=== PATIENT | male | born 1990 | race Caucasian/White ===

== ENCOUNTER 2019-11-30 22:57 | Emergency (ER) | payer OTHER, BC ==
[~2019-11-30] VITALS: Ht 170.2 cm; Wt 94.5 kg
[2019-12-01 00:13] LABS: BASO % 0.5 % (0.0-1.0); EOS # 0.2 10^3/uL (0.0-0.5); EOS % 2.3 % (0.0-3.0); HEMATOCRIT 44.2 % (42.0-52.0); HEMOGLOBIN 16.2 g/dl (13.5-17.5); LYMPH # 2.7 10^3/uL (1.5-5.0); LYMPH % 34.5 % (24.0-44.0); MEAN CORPUSCULAR HEMOGLOBIN 32.3 pg (27.0-33.0); MEAN CORPUSCULAR HGB CONC 36.7 g/dl (32.0-36.5); MEAN CORPUSCULAR VOLUME 88.2 fl (80.0-96.0); MONO # 0.5 10^3/uL (0.0-0.8); NEUTROPHILS # 4.3 10^3/uL (1.5-8.5); NEUTROPHILS % 55.3 % (36.0-66.0); PLATELET COUNT, AUTOMATED 334 10^3/uL (150-450); RED BLOOD COUNT 5.01 10^6/uL (4.30-6.10); WHITE BLOOD COUNT 7.7 10^3/uL (4.0-10.0)
[2019-12-01 00:26] LABS: POTASSIUM SERUM 2.9 MEQ/L (3.5-5.1)
[2019-12-01] MEDS ORDERED: POTASSIUM CHLORIDE 10 MEQ SR TABLET PO ONE (00:45)
--- NOTE | 2019-12-01 01:14 | REPVR ---
PROCEDURE INFORMATION: Exam: CT Abdomen And Pelvis Without Contrast Exam date and time: 12/01/2019 12:54 AM Age: 29 years old Clinical indication: Abdominal pain; Additional info: Suprapubic pain, hematuria, calculus? TECHNIQUE: Imaging protocol: Computed tomography of the abdomen and pelvis without contrast. Axial, coronal and sagittal reformatted images were created and reviewed. Radiation optimization: All CT scans at this facility use at least one of these dose optimization techniques: automated exposure control; mA and/or kV adjustment per patient size (includes targeted exams where dose is matched to clinical indication); or iterative reconstruction. COMPARISON: No relevant prior studies available. FINDINGS: Liver: Unremarkable. Gallbladder and bile ducts: No radiodense gallstones. No biliary ductal dilatation. Pancreas: Unremarkable. Spleen: Unremarkable. Adrenals: Unremarkable. Kidneys and ureters: Mild right-sided hydroureteronephrosis, secondary to a 4 mm mid to distal right ureteral calculus (axial image 109 and coronal image 49). Mild left-sided hydronephrosis, secondary to a 4 mm proximal left ureteral calculus (axial image 71 and coronal image 47). Nonobstructing left renal calculus. Stomach and bowel: Scattered colonic diverticula without evidence of diverticulitis. No obstruction. No bowel wall thickening. No pneumatosis. Appendix: Normal. Intraperitoneal space: No free fluid. No organized fluid collection. No free air. Vasculature: Unremarkable. No aneurysm. Lymph nodes: No pathologically enlarged lymph nodes. Bladder: Unremarkable. Reproductive: Unremarkable. Bones/joints: No acute osseous abnormality. Soft tissues: Unremarkable. IMPRESSION: 1. Bilateral obstructive uropathy, as described above. 2. Additional findings, as above. Electronically signed by: Javier Reese On 12/01/2019 01:13:33 AM
[2019-12-01 01:29] LABS: CHLAMYDIA DNA AMPLIFICATION NEGATIVE (NEGATIVE); GC DNA AMPLIFICATION NEGATIVE (NEGATIVE)
[2019-12-01] MEDS ORDERED: FLOM0.4C39 PO (01:43)
[2019-12-01] MEDS ORDERED: TAMSULOSIN 0.4 MG CAP PO ONE (01:45)
[2019-12-01 02:05] VITALS: BP 135/79
--- NOTE | 2019-12-01 06:30 | ECGEPIP ---
[facility] - ED Test Date: 2019-12-01 Pat Name: CAROLINA MOORE Department: Room: - Gender: Male Outreach Director: paulie : 1990 Requested By: FRANKIE Simpson PA-C Order Number: [id number] Reading MD: Diandra Tee Measurements Intervals [place] Rate: 88 P: 59 WI: 156 QRS: 44 QRSD: 82 T: 15 QT: 366 QTc: 443 Interpretive Statements SINUS RHYTHM NO PRIOR ECG FOR COMPARISON Electronically Signed on 12-01-2019 6:30:14 EDT by Diandra Tee
== END 2019-12-01 02:07 | disposition home or self-care (01) ==
LOC: M ED 22:57
DX: N13.2 Hydronephrosis with renal and ureteral calculous obstruction (principal); E87.6 Hypokalemia; R31.9 Hematuria, unspecified

== ENCOUNTER 2020-08-01 05:36 | Emergency (ER) | payer OTHER, BC ==
[~2020-08-01] VITALS: Ht 170.2 cm; Wt 96.6 kg
[~2020-08-01 05:36] MED LIST: FLOM0.4C39 PO
[2020-08-01] MEDS ORDERED: OTC POTASSIUM PO (05:52)
[2020-08-01] MEDS ORDERED: POTA10808 PO (05:52)
[2020-08-01] MEDS ORDERED: NS 1,000 ML IV ONE (07:00)
[2020-08-01] MEDS ORDERED: ONDANSETRON 4MG/2ML VIAL IV ONE (07:00)
[2020-08-01] MEDS ORDERED: KETOROLAC 30 MG/ML 1ML VIAL IV ONE (07:00)
[2020-08-01 07:55] LABS: BASO % 0.3 % (0.0-1.0); EOS # 0.1 10^3/uL (0.0-0.5); EOS % 0.9 % (0.0-3.0); HEMOGLOBIN 14.6 g/dl (13.5-17.5); LYMPH # 1.5 10^3/uL (1.5-5.0); LYMPH % 13.5 % (24.0-44.0); MEAN CORPUSCULAR HEMOGLOBIN 30.4 pg (27.0-33.0); MEAN CORPUSCULAR HGB CONC 34.8 g/dl (32.0-36.5); MEAN CORPUSCULAR VOLUME 87.5 fl (80.0-96.0); MONO # 0.7 10^3/uL (0.0-0.8); MONO % 6.2 % (0.0-5.0); NEUTROPHILS # 8.7 10^3/uL (1.5-8.5); NEUTROPHILS % 78.9 % (36.0-66.0); PLATELET COUNT, AUTOMATED 319 10^3/uL (150-450)
[2020-08-01 08:14] LABS: BLOOD UREA NITROGEN 12 MG/DL (7-18); CALCIUM LEVEL 8.6 MG/DL (8.5-10.1); CARBON DIOXIDE LEVEL 27 MEQ/L (21-32); CHLORIDE LEVEL 105 MEQ/L (98-107); CREATININE FOR GFR 1.13 MG/DL (0.70-1.30); GLOMERULAR FILTRATION RATE > 60.0 (>60); GLUCOSE, FASTING 123 MG/DL (70-100); POTASSIUM SERUM 3.6 MEQ/L (3.5-5.1); SODIUM LEVEL 140 MEQ/L (136-145)
--- NOTE | 2020-08-01 08:35 | REP ---
INDICATION: left renal colic COMPARISON: 12/01/2019 TECHNIQUE: Axial noncontrast images from the lung bases to the pubic symphysis with coronal and sagittal reformations. This CT examination was performed using the following dose reduction techniques: Automated exposure control, adjustment of mA and/or kv according to the patient's size, and use of iterative reconstruction technique. FINDINGS: Acute left-sided hydropneumothorax including edematous enlargement to the left kidney, perinephric stranding, and hydroureteronephrosis secondary to a 4 mm obstructing calculus at the ureterovesical junction (images 132-133). Few adjacent reactive retroperitoneal lymph nodes at the level of the left kidney are noted. 2 mm nonobstructing left renal calculus is also appreciated. Right kidney includes 1 mm nonobstructing renal calculus. Liver, spleen, pancreas, gallbladder, and bilateral adrenal glands are normal. The enteric system is without obstruction or acute inflammatory process. Normal terminal ileum and appendix are identified in the right lower quadrant. Pelvis demonstrates sigmoid diverticula without acute diverticulitis. Bladder is grossly unremarkable. Prostate gland is age-appropriate. No pelvic fluid or ascites. No free air. Abdominal aorta and vasculature are grossly normal for noncontrast evaluation. Skeletal structures are intact. IMPRESSION: 1. Acute left-sided obstructive uropathy with a 4 mm obstructing calculus at the ureterovesical junction. Solitary nonobstructing 1 mm right calculus and 2 mm left calculus noted. <Electronically signed by Jeuss Alberto Whitfield > 08/01/20 0839
[2020-08-01] MEDS ORDERED: IBUP-1022 PO (09:41)
[2020-08-01] MEDS ORDERED: ONDA4TAB6 PO (09:41)
[2020-08-01] MEDS ORDERED: NORC1TAB7 PO (09:41)
[2020-08-01 10:47] VITALS: BP 142/84
== END 2020-08-01 10:49 | disposition home or self-care (01) ==
LOC: M ED 05:36
DX: N13.2 Hydronephrosis with renal and ureteral calculous obstruction (principal)
CPT/HCPCS: 74176; 80048; 81001; 85025; 96361; 96374; 96375; 99284; J1885; J2405

== ENCOUNTER → 2021-03-15 | Outpatient (CLI) | payer OTHER ==
[~2021-03-15] MED LIST changes: +IBUP-1022 PO; +NORC1TAB7 PO; +ONDA4TAB6 PO; +OTC POTASSIUM PO; +POTA10808 PO
--- NOTE | 2021-03-15 08:43 | REP ---
INDICATION: ABN LFT'S. COMPARISON: Abdomen/pelvis CT without IV contrast dated 08/01/2020. Abdomen/pelvis CT without IV contrast dated 12/01/2019. TECHNIQUE: Multiple ultrasonographic images of the abdominal right upper quadrant. FINDINGS: The hepatic parenchyma is homogeneous but slightly hyperechoic. This is compatible with hepato steatosis. There is no cholelithiasis, gallbladder wall thickening or pericholecystic fluid. There is no intrahepatic or extrahepatic biliary duct dilatation. The common biliary duct measures 3.5 mm in diameter. The pancreas is obscured by bowel gas. The right kidney is normal size measuring 11.4 x 5.7 x 4.9 cm. There is no right renal hydronephrosis, calculus, mass or cyst. There is no intraperitoneal free fluid. IMPRESSION: No focal hepatic lesions. There is mild hepatic hyperechogenicity compatible with hepato steatosis. The study is limited because of bowel gas. <Electronically signed by Diego Cruz > 03/15/21 0839
== END ==
LOC: M RAD 06:30
PROVIDERS: ATTEND Nurse Practitioner Family
DX: R94.5 Abnormal results of liver function studies (principal)

== ENCOUNTER → 2021-05-12 | Outpatient (REF) | payer OTHER, BC | LOC: M LAB REF 17:50 | PROVIDERS: ATTEND Physician Assistant | DX: Z51.89 Encounter for other specified aftercare (principal) ==

== ENCOUNTER → 2021-12-30 | Outpatient (CLI) | payer OTHER | LOC: M WHC 06:42 | PROVIDERS: ATTEND Nurse Practitioner Adult Health | DX: R94.5 Abnormal results of liver function studies (principal) ==

== ENCOUNTER → 2022-06-20 | Outpatient (REF) | payer OTHER | LOC: M SFHCDERM 17:23 | PROVIDERS: ATTEND Physician Assistant | DX: N48.29 Other inflammatory disorders of penis (principal) ==

== ENCOUNTER 2023-09-13 01:56 | Emergency (ER) | payer OTHER, BC ==
[~2023-09-13] VITALS: Ht 172.7 cm; Wt 89.2 kg
[2023-09-13 01:59] VITALS: BP 132/85; TEMP 97.4; O2SAT 98
== END 2023-09-13 03:17 | disposition left against medical advice (07) ==
LOC: M ED 01:56
DX: Z53.21 Procedure and treatment not carried out due to patient leaving prior to being seen by health care provider (principal)

== ENCOUNTER → 2024-04-19 | Outpatient (REF) | payer OTHER ==
[~2024-04-19] MED LIST changes: +ONDA-282 PO; -ONDA4TAB6 PO
== END ==
LOC: M SMT 17:06
PROVIDERS: ATTEND Urology
DX: N20.0 Calculus of kidney (principal)

== ENCOUNTER → 2024-04-19 | Outpatient (REF) | payer OTHER ==
[2024-04-19 18:02] LABS: APPEARANCE, URINE CLEAR (CLEAR); BACTERIA, URINE AUTO NEGATIVE (NEGATIVE); BILIRUBIN, URINE AUTO NEGATIVE (NEGATIVE); BLOOD, URINE BLOOD NEGATIVE (NEGATIVE); COLOR, URINE COLORLESS (YELLOW); GLUCOSE, URINE (UA) AUTO NEGATIVE (NEGATIVE); KETONE, URINE AUTO NEGATIVE (NEGATIVE); LEUKOCYTE ESTERASE, URINE AUTO NEGATIVE (NEGATIVE); NITRITE, URINE AUTO NEGATIVE (NEGATIVE); PROTEIN, URINE AUTO NEGATIVE (NEGATIVE); RBC, URINE AUTO 0 /HPF (0-3); SPECIFIC GRAVITY URINE AUTO 1.002 (1.002-1.035); SQUAMOUS EPITHELIAL CELL UR AU 0 /HPF (0-6); UROBILINOGEN, URINE AUTO 0.2 mg/dL (0.0-2.0); WBC, URINE AUTO 0 /HPF (0-3)
== END ==
LOC: M SMT 17:04
PROVIDERS: ATTEND Urology
DX: R31.0 Gross hematuria (principal)

== ENCOUNTER → 2024-04-26 | Outpatient (CLI) | payer OTHER ==
[~2024-04-26] MED LIST changes: +ISOVUE-370 76% 100ML VIAL As Ordered ONE
== END ==
LOC: M RAD 14:13
PROVIDERS: ATTEND Urology
DX: N20.0 Calculus of kidney (principal); R31.0 Gross hematuria; K76.0 Fatty (change of) liver, not elsewhere classified
CPT/HCPCS: 74178; Q9967

== ENCOUNTER 2024-07-25 07:43 | Day surgery (SDC) | payer OTHER ==
[~2024-07-25] VITALS: Ht 170.2 cm; Wt 92.4 kg
[~2024-07-25 07:43] MED LIST changes: +D3 S1CAP3 PO; -ISOVUE-370 76% 100ML VIAL As Ordered ONE; +KETOROLAC 60MG 2ML VIAL As Ordered ONE; +LIDOCAINE 2% 100MG/5ML SDV (FOR ANES.) As Ordered ONE; +MIDAZOLAM INJ 2MG/2ML VIAL As Ordered ONE; +MV/F1CAP PO; +OMEG10002 PO; +ONDANSETRON 4MG 2ML VIAL As Ordered ONE; -POTA10808 PO; +POTA10809 PO; +TAMS1CAP17 PO; +fentaNYL 100 MCG/2 ML INJECTION As Ordered ONE; +propofoL 200 MG/20 ML VIAL As Ordered ONE
[2024-07-25] MEDS ORDERED: LR 1,000 ML IV SCH (08:00)
[2024-07-25] MEDS ORDERED: ACETAMINOPHEN 1000MG/100ML IV BAG As Ordered ONE (09:19)
[2024-07-25] MEDS: ceFAZolin SOD 2 GM in IV 1 EA IV ONE (09:22)
[2024-07-25 10:50] VITALS: BP 138/89; TEMP 97.5; O2SAT 99
== END 2024-07-25 11:09 | disposition home or self-care (01) ==
LOC: M SDC 07:43
PROVIDERS: ATTEND Urology
DX: N20.1 Calculus of ureter (principal); Z90.49 Acquired absence of other specified parts of digestive tract
CPT/HCPCS: 50590; 74018; J0131; J0690; J1100; J1885; J2250; J2405; J3010

== ENCOUNTER → 2024-08-15 | Outpatient (CLI) | payer OTHER ==
[~2024-08-15] MED LIST changes: -KETOROLAC 60MG 2ML VIAL As Ordered ONE; -LIDOCAINE 2% 100MG/5ML SDV (FOR ANES.) As Ordered ONE; -MIDAZOLAM INJ 2MG/2ML VIAL As Ordered ONE; -ONDANSETRON 4MG 2ML VIAL As Ordered ONE; -fentaNYL 100 MCG/2 ML INJECTION As Ordered ONE; -propofoL 200 MG/20 ML VIAL As Ordered ONE
== END ==
LOC: M RAD 09:58
PROVIDERS: ATTEND Urology
DX: N20.0 Calculus of kidney (principal)

== ENCOUNTER → 2024-08-16 | Outpatient (REF) | payer OTHER | LOC: M SMT 13:01 | PROVIDERS: ATTEND Nurse Practitioner Family | DX: N20.0 Calculus of kidney (principal) ==